=== PATIENT | female | born 1985 | race Caucasian/White ===

== ENCOUNTER 2025-04-23 12:36 | Outpatient (CLI) | payer SELFPAY ==
--- NOTE | 2025-04-23 12:45 | XRR_ITS ---
PROCEDURE INFORMATION: Exam: XR Right Hip Exam date and time: 04/23/2025 1:07 PM Age: 39 years old Clinical indication: Hip pain; Bilateral; Prior surgery; Surgery date: 6+ months; Surgery type: RT labrum repair with anchors 2022; Additional info: Bilateral hip pain; Lower back pain TECHNIQUE: Imaging protocol: Radiologic exam of the right hip. Views: 1 view hip with pelvis when performed. COMPARISON: No relevant prior studies available. FINDINGS: Bones/joints: Well-corticated ossified fragments just lateral to the hip joint likely remote injury. No acute fracture. Soft tissues: Unremarkable. XR/XR hip RT 2-3V wo/w pel* [id number] IMPRESSION: No acute findings.
== END 2025-04-23 12:37 | disposition home or self-care (01) ==
PROVIDERS: Visit Provider Registered Nurse Neonatal Intensive Care
DX: M25.551 Pain in right hip (principal); R93.7 Abnormal findings on diagnostic imaging of other parts of musculoskeletal system
CPT/HCPCS: 73502

== ENCOUNTER 2025-04-24 10:55 | Emergency (ER) | payer MEDICAID, SELFPAY ==
--- OUTSIDE RECORDS SUMMARY | 2025-04-24 11:02 | XMS_ITS | Clinical Summary ---
Author Organization [facility] Address [address] [place] [address] Care Team Providers Care Biological Engineer Name Role Phone Carlton Garza MD Primary Care Provider [phone] Allergies Active Allergy Reactions Criticality Noted Date Comments Ciprofloxacin Other (See Comments) 09/01/2012 Meperidine Other (See Comments) 09/01/2012 Promethazine Other (See Comments) 09/01/2012 Medications tamsulosin (FLOMAX) 0.4 mg Oral 24 hr capsule Take 1 capsule by mouth daily. 14 capsule 06/14/2024 Active Active Problems Problem Noted Date Diagnosed Date Weakness of right lower extremity 11/22/2024 Generalized weakness 11/20/2024 Weakness of both lower extremities 11/20/2024 Cervical pain (neck) 02/23/2017 Hypercalcemia 02/22/2017 Chronic pansinusitis 02/22/2017 Chronic nonsuppurative otitis media of both ears 02/22/2017 Tension type headache 02/22/2017 Pyelonephritis 02/20/2017 Obesity (BMI 30-39.9) 02/20/2017 Tobacco abuse 02/20/2017 Resolved Problems Problem Noted Date Diagnosed Date Resolved Date Hypotension 02/20/2017 02/23/2017 Intractable nausea and vomiting 02/20/2017 02/23/2017 Immunizations Immunization Administration Dates Next Due Tdap 04/06/2018 Family History Medical History Relation Name Comments Anemia Daughter 1 kailynn Premature Daughter 1 kailynn Premature Daughter 2 ashok Hypertension Father J. Rosie Leukemia Maternal Grandfather Breast cancer Maternal Grandmother Hypertension Paternal Grandfather GP Rosie Lung cancer Paternal Grandfather GP Rosie Bone cancer Paternal Grandmother GM Rosie Hypertension Paternal Grandmother GM Rosie Cervical cancer Sister MICHELLE III Premature Son jakub Relation Name Status Comments Daughter 1 balwinder Alive Daughter 2 ashok Alive Father J. Rosie Alive Half-Brother Alive Half-Sister Alive Maternal Grandfather Maternal Grandmother Mother Alive Paternal Grandfather GP Rosie Paternal Grandmother GM Rosei Alive Sister Alive Son jakub Alive Social History Tobacco Use Types Packs/Day Years Used Date Smoking Tobacco: Former Cigarettes Q uit: 2019 Passive Smoke Exposure: Past Smokeless Tobacco: Never Tobacco Cessation:Counseling Given: Yes Alcohol Use Standard Drinks/Week Comments Not Currently 1 (1 standard drink = 0.6 oz pur e alcohol) 4 drinks a month [facility] Utilities Answer Date Recorded In the past 12 months has e [employer], gas, oil, or water [employer] threatened to shut off services in your home? No 07/08/2023 Humiliation, Afraid, Rape, and Kick questionnair e Answer Date Recorded Within the last year, have y ou been afraid of your partner or ex-partner? No 07/08/2023 Within the last year, have y ou been humiliated or emotionally abused in other ways by your partner or ex-partner? No Within the last year, have y ou been kicked, hit, slapped, or otherwise physically hurt by your partner or ex-partner? No 07/08/2023 Within the last year, have y ou been raped or forced to have any kind of sexual activity by your partner or ex-partner? No 07/08/2023 AUDIT-C Answer Date Recorded Q1: How often do you have a drink containing alc ohol? Monthly or less 07/08/2023 Q2: How many drinks containi ng alcohol do you have on a typical day when you are drinking? 1 or 2 07/08/2023 Q3: How often do you have si x or more drinks on one occasion? Never 07/08/2023 Overall Financial Resource Strain (CARDIA) Answe r Date Recorded How hard is it for you to pa y for the very basics like food, housing, medical care, and heating? Not hard at all 07/08/2023 Hunger Vital Sign Answer Date Recorded Within the past 12 months, y ou worried that your food would run out before you got the money to buy more. Never true 07/08/20 23 Within the past 12 months, t he food you bought just didn't last and you didn't have money to get more. Never true 07/08/2023 PRAPARE - Transportation Answer Date Re corded In the past 12 months, has l ack of transportation kept you from medical appointments or from getting medications? No 06/25 In the past 12 months, has l ack of transportation kept you from meetings, work, or from getting things needed for daily living? No 07/08/2023 Housing Stability Vital Sign Answer Mauro e Recorded In the last 12 months, was t here a time when you were not able to pay the mortgage or rent on time? No 07/08/2023 Number of Places Lived in the Last Year Not on f ile 07/08/2023 In the last 12 months, was t here a time when you did not have a steady place to sleep or slept in a care home (including now)? 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 Gender Identity Female 02/25/2018 6:54 PM CDT Sexual Orientation Straight 04/06/2023 5: 10 PM CDT Last Filed Vital Signs Vital Sign Reading Time Taken Comments Blood Pressure 108/67 11/23/2024 10:46 AM CDT Pulse 66 11/23/2024 11:00 AM CDT Temperature 36.7 C (98.1 F) 11/23/2024 10:46 AM CDT Respiratory Rate 16 11/23/2024 10:46 AM CDT Oxygen Saturation 100% 11/23/2024 10:46 AM CDT Inhaled Oxygen Concentration - - Weight 59 kg (130 lb) 11/20/2024 10:47 AM CDT Height 149.9 cm (4' 11 ) 11/20/2024 10:47 AM CDT Body Mass Index 26.26 11/20/2024 10:47 AM CDT Plan of Treatment Health Maintenance Due Date Last Done Comments Hepatitis C Screening 1984 Hepatitis B Vaccines (1 of 3 - 19+ 3-dose series) 2003 HPV Vaccines (1 - 3-dose SCD M series) 2011 General Annual Wellness Visit 10/03/2017 10/03/2016 DTaP,Tdap,and Td Vaccines (2 - Td or Tdap) 05/04/2018 04/06/2018 Lipid Screening 10/18/2018 10/18/2015 COVID-19 Vaccine (2 - 2023-2 5 season) 2024 03/26/2021 Mammogram 2024 Depression Screening 08/25/2024 Influenza Vaccine (#1) 2025 Tobacco Use Screening 11/19/2025 11/19/2024 Shingles Vaccine (1 of 2) 2034 HIV Screening Completed 10/31/2011 HIB Vaccines Aged Out No longer eligi ble based on patient's age to complete this topic Hepatitis A Vaccines Aged Out No long er eligible based on patient's age to complete this topic Meningococcal ACWY Vaccine Aged Out N o longer eligible based on patient's age to complete this topic Pneumococcal Vaccine Childho od & At Risk Aged Out No longer eligible b ased on patient's age to complete this topic RSV Vaccine (under 20 mo) Aged Out No longer eligible based on patient's age to complete this topic Insurance [place] [id number] [place] Advance Directives * Full Code (Latest Code Status on File) Date Activated Date Inactivated Comments 11/20/2024 4:53 AM Healthcare Agents on File Name Relationship Healthcare Agent Relationshi p Communication Lotus Hernandez Mother First Alternate Health C are Agent Masood Velez Father Second Alternate Health Care Agent Care Teams Biological Engineer Relationship Specialty Start Date End Date Carlton Garza MD [address] [id number] [email or web address] PCP - General 08/18/17
--- OUTSIDE RECORDS SUMMARY | 2025-04-24 11:02 | XMS_ITS | Encounter Summary ---
Author Organization [facility] Address [address] [place] [address] Care Team Providers Care Emblem Fuser Tender Name Role Phone Carlton Garza MD Primary Care Provider [phone] Encounter Details Date Type Department Care Team (Late st Contact Info) Description 12/17/2023 [place] [address] External Referring Provider, Not In System [address] [place] [address] Right hip pain (Primary Dx) Social History Tobacco Use Types Packs/Day Years Used Date Smoking Tobacco: Some Days Cigarettes Smokeless Tobacco: Former Comments:pt says she may smo ke socially when drinking. Smoking since age of 14 Alcohol Use Standard Drinks/Week Comments Yes 2 (1 standard drink = 0.6 oz pur e alcohol) socially Comments No Sex and Gender Information Value Date Recorded Sex Assigned at Not on file Legal Sex Female 6:50 PM CDT Gender Identity Not on file Sexual Orientation Not on file documented as of this encounter Plan of Treatment Not on file documented as of this encounter Visit Diagnoses Diagnosis Right hip pain- Primary Pain in joint, pelvic region and thigh documented in this encounter Care Teams Emblem Fuser Tender Relationship Specialty Start Date End Date Carlton Garza MD [facility] [address] [id number] PCP - General Family Medicine 03/07/17 documented as of this encounter
--- OUTSIDE RECORDS SUMMARY | 2025-04-24 11:02 | XMS_ITS | Referral Summary ---
Author Organization [facility] Address [address] [place] [address] Care Team Providers Care Food And Drink Factory Workers Name Role Phone Carlton Garza MD Primary Care Provider [phone] Allergies Active Allergy Reactions Criticality Noted Date [...] Immunization Administration Dates Next Due Tdap 04/06/2018 Social History Tobacco Use Types Packs/Day Years Used Date Smoking Tobacco: Former Cigarettes Q uit: 2019 Passive Smoke Exposure: Past Smokeless Tobacco: Never Tobacco Cessation:Counseling Given: Yes Alcohol Use Standard Drinks/Week Comments Not Currently 1 (1 standard drink = 0.6 oz pur e alcohol) 4 drinks a month [facility] Utilities Answer Date Recorded In the past 12 months has th e electric, gas, oil, or water company threatened to shut off services in your [...] place to sleep or slept in a correction (including now)? 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 Gender Identity Female 02/25/2018 6:54 PM CDT [...] 11/20/2024 10:47 AM CDT Plan of Treatment Not [place] [address] [place] [id number] [place]ICA[place] Advance Directives * Full Code (Latest Code Status on File) Date Activated Date Inactivated Comments 11/20/2024 4:53 AM Healthcare Agents on File Name Relationship Healthcare Agent Relationshi p Communication Lotus Hernandez Mother First Alternate Health C are Agent Masood Velez Father Second Alternate Health Care Agent Care Teams Food And Drink Factory Workers Relationship Specialty Start Date End Date Carlton Garza MD [address] [phone] [email or web address] PCP - General 08/18/17
--- OUTSIDE RECORDS SUMMARY | 2025-04-24 11:02 | XMS_ITS | Clinical Summary ---
Author Organization [facility] Address [address] [place] [address] Care Team Providers Care Residential Therapist Name Role Phone Carlton Garza MD Primary Care Provider [phone] Allergies Active Allergy Reactions Criticality Noted Date Comments Diphenhydramine Hcl Palpitations High 03/04/2014 Heart races and anxious per pt. Ciprofloxacin Nausea And Vomiting High 03/02/2014 Meperidine Palpitations High 03/02/2014 Promethazine Other (See Comments) Medium 03/02/2014 cant sit still Medications acetaminophen (TYLENOL) 500 MG tablet Take 500 mg by mouth every 6 (six) hours as needed for pain. Active ibuprofen (ADVIL,MOTRIN) 400 MG tablet Take 400 mg by mouth every 6 (six) hours as needed for pain. Active traMADol (ULTRAM) 50 mg tablet Take 50 mg by mouth every 6 (six) hours as needed for pain. Active Sulfamethoxazol e-TMP (BACTRIM,SEPTRA ) 400-80 mg per tabletIndicatio ns:bacterial urinary tract infection Take 1 tablet by mouth 2 (two) times a day. Active amitriptyline (ELAVIL) 10 MG tablet Take 1 tab nightly for 3 days. Then increase to 2 tabs nightly 60 tablet 2 10/20/2015 Active traMADol (ULTRAM) 50 mg tablet Take 1 tablet (50 mg total) by mouth every 8 (eight) hours as needed for pain. 20 tablet 0 10/03/2016 Active Active Problems Problem Noted Date Diagnosed Date [facility] 10/18/2015 Overview (12/23/2018): Legacy Problem list item Administratively mapped in to ICD-10 Legacy Problem list item Administratively mapped in to ICD-10 Conversion disorder 10/18/2015 Right sided weakness 10/18/2015 Dyspnea 03/09/2014 Tobacco abuse 03/09/2014 Abnormal PFT 03/09/2014 Muscle spasm 03/07/2014 Acute pain 03/07/2014 Chronic pain 03/07/2014 Headache 03/05/2014 Photophobia of both eyes 03/05/2014 Family History Medical History Relation Comments Coronary artery disease Father Cancer Maternal Grandfather leukemia Hypertension Mother Cancer Paternal Grandfather lung Cancer Paternal Grandmother muscle/leg tumor Diabetes type II Paternal Grandmother Cancer Sister cervical Relation Status Comments Father Maternal Grandfather Mother Paternal Grandfather Paternal Grandmother Sister Social History Tobacco Use Types Packs/Day Years [...] on file Sexual Orientation Not on file Last Filed Vital Signs Vital Sign Reading Time Taken Comments Blood Pressure 105/57 03/08/2017 1:51 AM CDT Pulse 79 03/08/2017 1:51 AM CDT Temperature 36.6 C (97.8 F) 03/08/2017 1:51 AM CDT Respiratory Rate 18 03/08/2017 1:51 AM CDT Oxygen Saturation 100% 03/08/2017 1:51 AM CDT Inhaled Oxygen Concentration - - Weight 70.3 kg (155 lb) 03/08/2017 12:33 AM CDT Height 152.4 cm (5') 03/08/2017 12:33 AM CDT Body Mass Index 30.27 03/08/2017 12:33 AM CDT Plan of Treatment Health Maintenance Due Date Last Done Comments Hepatitis C Screening 1984 Mammogram 1984 Anxiety Screening 1992 Depression Screening 2002 Hepatitis B Vaccine (1 of 3 - 19+ 3-dose series) 2003 TDAP/DTaP/TD Vaccines (1 - Tdap) 2003 Pap Smear 10/03/2019 10/03/2016, 09/25/2012, 09/25/2012 Cervical Cancer Screening (30-65) 10/03/2021 HPV/Cotest 10/03/2021 10/03/2016 COVID-19 Vaccine (1 - 2023-2 5 season) 2024 Lipid Panel 2024 10/18/2015 Influenza Series (#1) 2025 HIV Screening Completed 10/31/2011, 04/24/2011, 03/28/2011 Meningococcal B Vaccine Aged Out No l onger eligible based on patient's age to complete this topic Pneumococcal Vaccine 0-50 years Aged Out No longer eligible b ased on patient's age to complete this topic Procedures Procedure Name Priority Date/Time Associated Diagnosis Comments ENVIRONMENTAL CONSERVATION PROFESSOR PAP SMEAR CYTOPATHOLOGY Routine 10/03/2016 2:53 PM BUSINESS BANKING SALES ASSISTANT Endometriosis LIPID PANEL Routine 10/18/2015 2:40 AM BUSINESS BANKING SALES ASSISTANT HIV-1 AND HIV-2 ANTIBODIES Routine 10/31/2011 from Last 3 Months or Most Recently Relevant to Health Maintenance Results * Pap Smear Cytology (10/03/2016 2:53 PM BUSINESS BANKING SALES ASSISTANT) Final AP Report [facility] ENVIRONMENTAL CONSERVATION PROFESSOR CYTOLOGY Case: [id number] Authorizing Provider: Carlton Reveles MD Collected: 10/03/2016 1453 [facility]ing Location: [facility] Received: 10/04/2016 1453 -- PHLEBOTOMY SUPPORT TECH First Screen: Ermias Jaffe Specimen: LIQUID-BASED PAP, SCREENING, Cervical 10/10/2016 10:01 AM BUSINESS BANKING SALES ASSISTANT [facility] SPECIMEN ADEQUACY Satisfactory for evaluation, transformation zone component present 10/10/2016 10:01 AM BUSINESS BANKING SALES ASSISTANT [facility] INTERPRETATION NEGATIVE FOR INTRAEPITHELIAL LESION OR MALIGNANCY. 10/10/2016 10:01 AM BUSINESS BANKING SALES ASSISTANT [facility] at 1001 BUSINESS BANKING SALES ASSISTANT INDICATION FOR PAP Routine ENVIRONMENTAL CONSERVATION PROFESSOR 10/10/2016 10:01 AM BUSINESS BANKING SALES ASSISTANT [facility] COLLECTION METHOD Gladys 10/10/2016 10:01 AM BUSINESS BANKING SALES ASSISTANT [facility] HPV REFLEX? If ASCUS 10/10/2016 10:01 AM BUSINESS BANKING SALES ASSISTANT [facility] DISCLAIMER The PAP TEST is a screening test, and is subject to inherent false negative and false positive results. Appropriate clinical correlation and regular patient follow-up are recommended. 10/10/2016 10:01 AM BUSINESS BANKING SALES ASSISTANT [facility] Other CERVICAL / Unknown 7 2:53 PM BUSINESS BANKING SALES ASSISTANT 10/04/2016 2:53 PM BUSINESS BANKING SALES ASSISTANT Carlton Reveles MD PATHOLOGY/CYTOLOGY ORDERABLES F inal Result [facility] [address] [place] [address], * Lipid panel (CHOL, TRIG, HDL, LDL) (10/18/2015 2:40 AM BUSINESS BANKING SALES ASSISTANT) Cholesterol 207 mg/dL 10/18/2015 3:20 AM BUSINESS BANKING SALES ASSISTANT [facility] Comment:ADULT INTERVAL: Jillian rable:< 200 mg/dL, Borderline: 200-239 mg/dL, High Risk: > 239 mg/dL, CHILDREN and ADOLESCENTS: Desirable: <170 mg/dL, Borderline: 170- 199 mg/dL, High: >199 mg/dL Triglycerides 144 mg/dL 10/18/2015 3:20 AM BUSINESS BANKING SALES ASSISTANT [facility] Comment:IN FASTING PATIENTS: Normal: <150 mg/dL, Borderline-High: 150-199 mg/dL, High: >199 mg/dL HDL 63 mg/dL 10/18/2015 3:20 AM BUSINESS BANKING SALES ASSISTANT [facility] Comment:Desirable: >60, Incr eased Risk: <40 LDL Chol 115 mg/dL 10/18/2015 3:20 AM BUSINESS BANKING SALES ASSISTANT [facility] Comment:ADULT INTERVALS: Opt imal < 100 mg/dL, Low risk 100-129 mg/dL, Borderline risk 130-159 mg/dL, High >159 mg/dL Blood 10/18/2015 2:40 AM BUSINESS BANKING SALES ASSISTANT 10/18/2015 2:49 AM BUSINESS BANKING SALES ASSISTANT Narrative [facility] - 10/18/2015 3:20 AM BUSINESS BANKING SALES ASSISTANT An optional LDL-C goal of less than 70 mg/dL may be considered for patients at high CHD risk. In children and adolescents a desirable LDL serum cholesterol is less than 110 mg/dL. Sharon Carr MD LAB BLOOD ORDERABLES Final Result [facility] [address] [place] [address], [place] [phone] * HIV-1 and HIV-2 antibodies (10/31/2011) HIV I/II Ab Non-reacti ve [facility] 10/31/2011 Mack Carlson MD LAB BLOOD ORDERABLES Final Resul t [facility] from Last 3 Months or Most Recently Relevant to Health Maintenance Advance Directives * Full Code (Latest Code Status on File) Date Activated Date Inactivated Comments 10/17/2015 9:33 PM 10/20/2015 2:19 AM * Full Code Date Activated Date Inactivated Comments 03/05/2014 4:05 AM 03/10/2014 4:42 PM Care Teams Residential Therapist Relationship Specialty Start Date End Date Carlton Garza MD [address] [place], [place] [address] [address] PCP - General Family Medicine 03/07/17
--- NOTE | 2025-04-24 11:04 | XRR_ITS ---
PROCEDURE INFORMATION: Exam: XR Left Hip Exam date and time: 04/24/2025 11:32 AM Age: 39 years old Clinical indication: Hip pain; Left hip; Additional info: Injury TECHNIQUE: Imaging protocol: Radiologic exam of the left hip. Views: 2 or 3 views hip with pelvis when performed. COMPARISON: No relevant prior studies available. FINDINGS: Bones/joints: No fracture or dislocation. The left hip is within normal limits. Right hip joint is normal. Soft tissues: Several small soft tissue calcifications project lateral to the right hip joint. XR/XR hip LT 2-3V wo/w pel* [id number] IMPRESSION: 1. Normal left hip. 2. No acute fractures. 3. Nonspecific periarticular calcifications lateral to the right hip.
[2025-04-24 11:11] VITALS: BP 107/68; PULSE 68; RESP 14; TEMP 36.7; O2SAT 100; BMI 26.2
--- NOTE | 2025-04-24 12:26 | W.ED.BACK ---
HPI - Back Pain/Injury General: Chief Complaint: Back Pain/Injury Stated Complaint: lt hip inj Time Seen by Provider: 04/24/25 12:25 History of Present Illness: 39-year-old female who presents to the emergency room with complaint of Left hip pain and low back pain. Patient was seen yesterday at outpatient setting had a left hip x-ray which was unremarkable. No recent trauma. No saddle paresthesias no urinary retention or fecal incontinence. Patient previously had a torn labrum on the right hip. From her description sounds like she may have had some avascular necrosis as well. She took some tramadol yesterday for her symptoms as well as this morning states tramadol did not help this morning. Associated symptoms: Deny abdominal pain, chills, dysuria, fever(s) or urinary urgency Related Data Previous Rx's ?Medication ?Instructions ?Recorded baclofen 5 mg tablet 5 mg PO TID PRN muscle pain #20 04/23/25 tabs prednisone 20 mg tablet 20 mg PO TID #15 tabs 04/24/25 tizanidine 4 mg tablet 4 mg PO Q6H PRN muscle spasticity 04/24/25 #20 tabs tramadol 50 mg tablet 50 mg PO Q6H PRN pain #20 tabs 04/24/25 Allergies Allergy/AdvReac Type Severity Reaction Status Date / Time ciprofloxacin Allergy ALGY-Hives Verified 04/24/25 11:11 meperidine (From Demerol) Allergy ADR-Hyperte Verified 04/24/25 11:11 nsion promethazine (From Phenergan) Allergy ADR-Anxiety Verified 04/24/25 11:11 Review of Systems Const: Denies: fever(s) or chills Card: Denies: chest pain Resp: Denies: dyspnea GI: Denies: abdominal pain : Denies: dysuria, urinary frequency or urinary urgency Musc: Denies: neck pain or back pain Skin/Breast: Denies: rash PFSH ED PFSH: Social History Smoking and tobacco/nicotine status: former use of tobacco/nicotine (quit 2019) Physical Exam Const: COMMON NORMALS: no acute distress GENERAL APPEARANCE: cooperative and comfortable ORIENTATION/CONSCIOUSNESS: Yes awake, Yes oriented to person, Yes oriented to place and Yes oriented to time HENMT: COMMON NORMALS: normocephalic, atraumatic and hearing grossly normal bilaterally HEAD & SCALP: normocephalic and atraumatic Resp: COMMON NORMALS: normal respiratory effort, No retractions, No use of accessory muscles and clear to auscultation bilaterally AUSCULTATION: clear to auscultation bilaterally Cardio: COMMON NORMALS: regular rate, regular rhythm and No murmurs present (Cardio) RATE: regular rate RHYTHM: regular rhythm GI: COMMON NORMALS: Soft to palpation and No hepatosplenomegaly present AUSCULTATION: Yes normoactive bowel sounds PALPATION: Yes Soft to palpation, No Tenderness to palpation present (GI), No Guarding due to palpation present (GI) and Yes No hepatosplenomegaly present Extremity: COMMON NORMALS: normal to inspection, capillary refill normal, no clubbing, cyanosis or edema, no calf tenderness and no pedal edema Neuro: SENSORIUM/ORIENTATION: Yes oriented to person, Yes oriented to place and Yes oriented to time OTHER: Straight leg raising positive on the left with internal extra rotation of the hip and with the leg in a neutral position she has no pain. Deep tendon reflexes diminished bilaterally at the patellar tendon neurovascularly intact bilaterally Skin: COMMON NORMALS: no rashes or lesions noted GENERAL SKIN EXAM: no rashes or lesions noted Course Vital Signs: Vital signs: Vital Signs Temperature 98.1 F 04/24/25 11:11 Pulse Rate 68 04/24/25 11:11 Respiratory Rate 18 04/24/25 12:57 Blood Pressure 107/68 04/24/25 11:11 Pulse Oximetry 96 04/24/25 12:57 MDM - Back Pain/Injury Medical Decision Making Suspect her symptoms are more related to a nerve entrapment. CT of the hip is unremarkable CT of the back shows some lumbar disc disease and foraminal stenosis at the L4 level this to be consistent with her symptoms. When I isolate the hip and internally externally rotate she has no significant pain. Reviewed findings with the patient we will discharge patient home prednisone taper tramadol for pain as needed also switch from baclofen to tizanidine. Refer to Dr. Ramos in orthopedics. Medical Records I reviewed the patient's medical records. Labs I reviewed the patient's lab results. Radiology Impressions Hip/Pelvis X-Ray 04/24/25 11:04 IMPRESSION: 1. Normal left hip. 2. No acute fractures. 3. Nonspecific periarticular calcifications lateral to the right hip. Hip CT 04/24/25 12:42 IMPRESSION: Very mild degenerative changes involving left hip. Lumbar Spine CT 04/24/25 12:42 IMPRESSION: 1. Mild disc bulges at L4-L5 and L5-S1. 2. Mild bilateral L4 foraminal narrowing. 3. No spinal canal narrowing. 4. No acute osseous abnormalities. All radiology interpretation(s) finalized by discharge Discharge Plan Discharge Patient Disposition: Home Clinical Impression: Lumbar radiculopathy Condition: Stable Prescriptions: New tizanidine 4 mg tablet 4 mg PO Q6H PRN (Reason: muscle spasticity) Qty: 20 0RF Rx Instructions: do not exceed 3 doses per 24 hrs prednisone 20 mg tablet 20 mg PO TID Qty: 15 0RF Rx Instructions: 1 p.o. 3 times daily x3 days, 1 p.o. twice daily x2 days, 1 p.o. daily x2 days tramadol 50 mg tablet 50 mg PO Q6H PRN (Reason: pain) Qty: 20 0RF No Action baclofen 5 mg tablet 5 mg PO TID PRN (Reason: muscle pain) Qty: 20 0RF Discharge Orders: Discharge ED (Routine); Ordered 04/24/25 Ordered By: John Martinez Referrals: TOM STANLEY MD [Primary Care Provider, Family Practice] Discharge Diet: Usual diet Discharge Activity: Increase activity as tolerated Patient Instructions: Opioid Safety, Pain Management, Patient Portal & Da Instructions Activity Restrictions/Additional Instructions: Thank you for choosing [facility] for your healthcare needs today. It is very important that you follow up as instructed or that you return to the Emergency Department should you have concerns or if your condition changes or worsens in any way. Emergency department visits are focused on emergent conditions, in some cases you may require further evaluation on an outpatient basis. You were seen in the emergency room for complaint of leg and hip pain. On exam it appears the pain is from a lumbar nerve impingement. CT shows the same.'s x-ray and CT of the left hip were negative for any acute pathology. You may need further imaging of the back or the hip pending orthopedic evaluation. Recommend that you stop the baclofen and instead use tizanidine as a muscle relaxer gave you a prednisone shot today and will recommend a prednisone taper beginning this evening. Also gave you hydrocodone for pain. first assistant manager will make arrangements for you to follow-up with orthopedics. (Please note that included in your discharge packet is information concerning opioid safety and pain management. This information is given to all patients were discharged from the ER regardless of their discharge diagnosis or the medicines they usually take or are prescribed.) Print Language: Singaporean Coding Level of Care Code ED [employer] for [employer]
--- NOTE | 2025-04-24 12:42 | CTR_ITS ---
PROCEDURE INFORMATION: Exam: CT Lumbar Spine Without Contrast Exam date and time: 04/24/2025 1:11 PM Age: 39 years old Clinical indication: Low back pain; Additional info: Radicular leg pain TECHNIQUE: Imaging protocol: Computed tomography of the lumbar spine without contrast. Radiation optimization: All CT scans at this facility use at least one of these dose optimization techniques: automated exposure control; mA and/or kV adjustment per patient size (includes targeted exams where dose is matched to clinical indication); or iterative reconstruction. COMPARISON: CR XR hip LT 2-3V wo/w pel* [id number] 04/24/2025 11:32 AM RADIATION DOSE METRICS: Total DLP (mGy-cm): 369.44 FINDINGS: Bones/joints: The lumbar spine is in normal alignment. No acute fracture. Slight superior endplate depression involving T12 relates to adjacent degenerative disc disease. Vertebral body heights are otherwise normal. No suspicious osseous lesion. The L4-L5 disc level reveals a mild diffuse disc bulge and mild ligamentum flavum hypertrophy. No spinal canal narrowing at this level. Mild bilateral L4 foraminal narrowing. The L5-S1 disc level reveals a mild diffuse bulge. No spinal canal narrowing or foraminal at this level. No other lumbar disc bulges. Soft tissues: No paraspinal soft tissue abnormalities. CT/CT lumbar spine wo con* [id number] IMPRESSION: 1. Mild disc bulges at L4-L5 and L5-S1. 2. Mild bilateral L4 foraminal narrowing. 3. No spinal canal narrowing. 4. No acute osseous abnormalities.
--- NOTE | 2025-04-24 12:42 | CTR_ITS ---
PROCEDURE INFORMATION: Exam: CT Left Lower Extremity Without Contrast, Hip Exam date and time: 04/24/2025 1:14 PM Age: 39 years old Clinical indication: Pain; Hip; Left TECHNIQUE: Imaging protocol: CT of the left lower extremity without contrast was performed. Exam focused on the hip. Radiation optimization: All CT scans at this facility use at least one of these dose optimization techniques: automated exposure control; mA and/or kV adjustment per patient size (includes targeted exams where dose is matched to clinical indication); or iterative reconstruction. COMPARISON: CR XR hip LT 2-3V wo/w pel* [id number] 04/24/2025 11:32 AM RADIATION DOSE METRICS: Total DLP (mGy-cm): 239.45 FINDINGS: Bones/joints: No acute fracture or dislocation. The femoral head is normal. A very small acetabular roof osteophyte is present. Left hip joint space thickness is normal. Soft tissues: Normal. CT/CT hip LT wo con* [id number] IMPRESSION: Very mild degenerative changes involving left hip.
[2025-04-24 12:57] VITALS: RESP 18; O2SAT 96
[2025-04-24] MEDS: morphine 4 mg/mL SDV 1 mL IVP (12:57)
[2025-04-24] MEDS: methylPREDNISolone sod succ 125 mg/2 mL INJ IVP (13:04)
[2025-04-24] MEDS: ondansetron 2 mg/ML SDV 2 mL 4 MG IVP (13:36)
[2025-04-24 14:29] VITALS: BP 123/55; PULSE 63; O2SAT 96
[2025-04-24] MEDS: HYDROmorphone 0.5 MG/0.5 ML INJ IVP (14:29)
[2025-04-24 14:40] VITALS: BP 125/89; PULSE 66; O2SAT 97
--- NOTE | 2025-04-25 08:41 | DCPLANNER ---
messaged ortho for er f/u
== END 2025-04-24 14:41 | disposition home or self-care (01) ==
PROVIDERS: Emergency Provider Family Medicine; PCP Emergency Medicine
DX: M54.16 Radiculopathy, lumbar region (principal); Z87.891 Personal history of nicotine dependence
CPT/HCPCS: 36415; 72131; 73502; 73700; 96374; 96375; 99285; E0114; J1171; J1885; J2270; J2405; J2919

== ENCOUNTER → 2025-04-28 08:14 | Outpatient (BNVA) | payer SELFPAY | PROVIDERS: PCP Emergency Medicine; Visit Provider Orthopaedic Surgery | DX: S22.080A Wedge compression fracture of T11-T12 vertebra, initial encounter for closed fracture (principal); M48.061 Spinal stenosis, lumbar region without neurogenic claudication; X58.XXXA Exposure to other specified factors, initial encounter | CPT/HCPCS: 72072; 72100 ==